=== PATIENT | male | born 1980 | race Caucasian/White ===

== ENCOUNTER → 2018-03-31 | Outpatient (REF) | payer BC ==
[2018-03-31 12:19] LABS: APPEARANCE, URINE CLEAR (CLEAR); BACTERIA, URINE AUTO NEGATIVE (NEGATIVE); BILIRUBIN, URINE AUTO NEGATIVE (NEGATIVE); BLOOD, URINE BLOOD NEGATIVE (NEGATIVE); COLOR, URINE YELLOW (YELLOW); GLUCOSE, URINE (UA) AUTO NEGATIVE (NEGATIVE); KETONE, URINE AUTO NEGATIVE (NEGATIVE); LEUKOCYTE ESTERASE, URINE AUTO NEGATIVE (NEGATIVE); MUCUS, URINE SMALL (NEGATIVE); NITRITE, URINE AUTO NEGATIVE (NEGATIVE); PROTEIN, URINE AUTO NEGATIVE (NEGATIVE); RBC, URINE AUTO 0 /HPF (0-3); SPECIFIC GRAVITY URINE AUTO 1.015 (1.002-1.035); SQUAMOUS EPITHELIAL CELL UR AU 0 /HPF (0-6); UROBILINOGEN, URINE AUTO 0.2 mg/dL (0.0-2.0); WBC, URINE AUTO 0 /HPF (0-3)
[2018-03-31 12:32] LABS: VITAMIN B12 LEVEL 593 PG/ML (247-911)
[2018-03-31 12:39] LABS: ALBUMIN 4.2 GM/DL (3.2-5.2); ALBUMIN/GLOBULIN RATIO 1.14 (1.00-1.93); ALKALINE PHOSPHATASE 95 U/L (45-117); ALT/SGPT 29 U/L (12-78); ANION GAP 5 MEQ/L (8-16); AST/SGOT 19 U/L (7-37); BLOOD UREA NITROGEN 18 MG/DL (7-18); C REACTIVE PROTEIN QUANTITATIV < 0.30 MG/DL (0.00-0.30); CALCIUM LEVEL 8.8 MG/DL (8.5-10.1); CARBON DIOXIDE LEVEL 30 MEQ/L (21-32); CHLORIDE LEVEL 105 MEQ/L (98-107); CHOLESTEROL LEVEL 187 MG/DL (<200); CHOLESTEROL RISK RATIO 4.675 (<5); CREATININE FOR GFR 1.16 MG/DL (0.70-1.30); GLOMERULAR FILTRATION RATE > 60.0 (>60); GLUCOSE, FASTING 86 MG/DL (70-100); HDL CHOLESTEROL 40 MG/DL (>40); LDL CHOLESTEROL 132.8 MG/DL (<100); NON-HDL-C 147 MG/DL; POTASSIUM SERUM 4.1 MEQ/L (3.5-5.1); SODIUM LEVEL 140 MEQ/L (136-145); TOTAL PROTEIN 7.9 GM/DL (6.4-8.2); TRIGLYCERIDES LEVEL 71 MG/DL (<150)
[2018-03-31 12:53] LABS: MALB URINE SIEMENS 21.5 MG/L; MAU/CREAT RATIO 13.7 MCG/MG (0.0-30.0)
[2018-03-31 13:12] LABS: ESTIMATED AVERAGE GLUCOSE 117 MG/DL (60-110); HEMOGLOBIN A1c 5.7 %
[2018-04-01 14:18] LABS: INSULIN LEVEL 13.1 uIU/mL (2.6-24.9)
[2018-04-02 10:53] LABS: QUANTIFERON GOLD TB Negative (Negative); TB Test (QFT) Antigen 0.05 IU/mL (.); TB Test (QFT) Antigen Minus Ni 0.01 IU/mL (.); TB Test (QFT) Mitogen 7.74 IU/mL (.); TB Test (QFT) Nil 0.04 IU/mL (.)
== END ==
LOC: M SFHCPLAZ 09:31
DX: R73.01 Impaired fasting glucose (principal); E78.2 Mixed hyperlipidemia; E53.8 Deficiency of other specified B group vitamins; Z20.1 Contact with and (suspected) exposure to tuberculosis
CPT/HCPCS: 83525

== ENCOUNTER → 2018-04-04 | Outpatient (CLI) | payer BC | LOC: M RAD 17:26 | DX: E04.1 Nontoxic single thyroid nodule (principal) | CPT/HCPCS: 76536 ==

== ENCOUNTER 2018-11-28 14:55 | Day surgery (SDC) | payer BC ==
[~2018-11-28] VITALS: Ht 172.7 cm; Wt 85.5 kg
[2018-11-28] MEDS ORDERED: NS 1,000 ML IV ONE ×2 (15:30)
[2018-11-28] MEDS ORDERED: LIDOCAINE 1% SDV INJ 30 ML VIAL As Ordered ONE (15:45)
[2018-11-28] MEDS ORDERED: BUPIVACAINE HCL 0.25% 30 ML VIAL As Ordered ONE (15:45)
[2018-11-28] MEDS ORDERED: PROPOFOL 200 MG/20 ML VIAL As Ordered ONE (15:53)
[2018-11-28] MEDS ORDERED: LIDOCAINE 2% INJ 100 MG/5 ML SDV (FOR ANES.) As Ordered ONE (15:53)
[2018-11-28] MEDS ORDERED: ROCURONIUM BROMIDE 50 MG/5 ML VIAL As Ordered ONE (15:53)
[2018-11-28] MEDS ORDERED: MIDAZOLAM INJ 2 MG/2 ML VIAL (J2250) As Ordered ONE (15:54)
[2018-11-28] MEDS ORDERED: SUCCINYLCHOLINE 100 MG/5 ML SYRINGE (J0330) As Ordered ONE (15:54)
[2018-11-28] MEDS ORDERED: fentaNYL 100 MCG/2 ML INJECTION (J3010) As Ordered ONE (15:54)
[2018-11-28] MEDS ORDERED: ONDANSETRON 4MG/2ML VIAL (J2405) IV ONE (16:00)
[2018-11-28] MEDS ORDERED: MORPHINE 2 MG/ML 1ML SYRINGE (J2270) IV ONE (16:00)
[2018-11-28 16:08] LABS: BASO # 0.1 10^3/uL (0.0-0.2); BASO % 0.3 % (0.0-1.0); EOS # 0.1 10^3/uL (0.0-0.50); EOS % 0.8 % (0.0-3.0); HEMATOCRIT 36.8 % (42.0-52.0); HEMOGLOBIN 13.3 g/dl (13.5-17.5); LYMPH # 2.1 10^3/uL (1.5-4.5); LYMPH % 14.9 % (24.0-44.0); MEAN CORPUSCULAR HEMOGLOBIN 30.6 pg (27.0-33.0); MEAN CORPUSCULAR HGB CONC 36.1 g/dl (32.0-36.5); MEAN CORPUSCULAR VOLUME 84.8 fl (80.0-96.0); MONO # 1.3 10^3/uL (0.0-0.8); MONO % 8.8 % (0.0-5.0); NEUTROPHILS # 10.7 10^3/uL (1.8-7.7); NEUTROPHILS % 74.7 % (36.0-66.0); PLATELET COUNT, AUTOMATED 318 10^3/uL (150-450); RED BLOOD COUNT 4.34 10^6/uL (4.30-6.10); WHITE BLOOD COUNT 14.4 10^3/uL (4.0-10.0)
[2018-11-28] MEDS ORDERED: ceFAZolin 2 GM/D5W 50 ML IV BAG (J0690 PER 500MG) As Ordered ONE (16:26)
[2018-11-28 16:46] LABS: ALBUMIN 4.1 GM/DL (3.2-5.2); BILIRUBIN,DIRECT 0.2 MG/DL (0.0-0.2); BILIRUBIN,TOTAL 1.1 MG/DL (0.2-1.0); C REACTIVE PROTEIN QUANTITATIV 0.35 MG/DL (0.00-0.30); CALCIUM LEVEL 8.4 MG/DL (8.5-10.1); CREATININE FOR GFR 1.42 MG/DL (0.70-1.30); GLOMERULAR FILTRATION RATE 59.1 (>60); POTASSIUM SERUM 3.3 MEQ/L (3.5-5.1); TOTAL PROTEIN 6.9 GM/DL (6.4-8.2)
[2018-11-28] MEDS ORDERED: dexameTHASONE 4 MG/ML 1ML VIAL (J1100) As Ordered ONE (16:54)
[2018-11-28] MEDS ORDERED: VASOPRESSIN INJ 20 UNITS/ML VIAL As Ordered ONE (16:59)
[2018-11-28] MEDS ORDERED: BACITRACIN PWD 50,000 UNITS VIAL As Ordered ONE (17:04)
[2018-11-28] MEDS ORDERED: GLYCOPYRROLATE INJ 0.2 MG/ML 2 ML VIAL As Ordered ONE (17:09)
[2018-11-28] MEDS ORDERED: HYDROmorphone HCL 2 MG/ML 1ML VIAL (J1170) As Ordered ONE (17:21)
[2018-11-28] MEDS ORDERED: SUGAMMADEX SODIUM 500 MG/5 ML VIAL (BRIDION) As Ordered ONE (17:25)
[2018-11-28] MEDS ORDERED: BACITRACIN OINT 30GM As Ordered ONE (17:25)
[2018-11-28] MEDS ORDERED: PERCOCET 5MG/325MG TAB PO PRN ×2 (18:15)
[2018-11-28 18:22] LABS: HEMATOCRIT 29.8 % (42.0-52.0); HEMOGLOBIN 10.4 g/dl (13.5-17.5)
[2018-11-28] MEDS ORDERED: ONDANSETRON 4MG/2ML VIAL (J2405) IV PRN ×2 (18:30→22:00)
[2018-11-28] MEDS ORDERED: LR 1,000 ML IV SCH (18:30)
[2018-11-28] MEDS ORDERED: fentaNYL 100 MCG/2 ML INJECTION (J3010) IV PRN (18:30)
[2018-11-28 19:45] VITALS: BP 143/77
[2018-11-28] MEDS ORDERED: ISOVUE-370 76% 100ML VIAL (Q9967) As Ordered ONE (20:27)
[2018-11-28 20:45] VITALS: BP 128/74
[2018-11-28 21:00] VITALS: BP 135/74
[2018-11-28] MEDS ORDERED: SENOKOT S TAB PO SCH (21:00)
[2018-11-28] MEDS: LIDOCAINE 2% JELLY 30 ML TOP PRN (21:11)
[2018-11-28 21:30] VITALS: BP 131/68
[2018-11-28] MEDS ORDERED: D5W/0.45% SODIUM CHLORIDE 1,000 ML IV SCH (21:30)
--- NOTE | 2018-11-28 21:32 | REPVR ---
EXAM: CT Abdomen and Pelvis Without and With Contrast EXAM DATE/TIME: 11/28/2018 8:42 PM CLINICAL HISTORY: 38 years old, male; Pain; Abdominal pain; Generalized; Additional info: Firm abdomen TECHNIQUE: Axial computed tomography images of the abdomen and pelvis without and with intravenous contrast. All CT scans at this facility use at least one of these dose optimization techniques: automated exposure control; mA and/or kV adjustment per patient size (includes targeted exams where dose is matched to clinical indication); or iterative reconstruction. Coronal and sagittal reformatted images were created and reviewed. CONTRAST: Contrast Material: 100 ml of ISOVUE 370; Contrast Route: IV COMPARISON: No relevant prior studies available. FINDINGS: Lower thorax: Minimal bilateral lower lobe fibro-atelectatic change. ABDOMEN: Liver: Normal. No mass. Gallbladder and bile ducts: Normal. No calcified stones. No ductal dilation. Pancreas: Normal. No ductal dilation. Spleen: Normal. No splenomegaly. Adrenals: Normal. No mass. Kidneys and ureters: There is a right renal cyst measuring 15 mm. Stomach and bowel: Borderline distention of the stomach with food material. Appendix: There are no changes of appendicitis. A normal appendix is not seen. PELVIS: Bladder: There is a Villasenor catheter in the bladder. Reproductive: Subcutaneous induration in the right inguinal region with asymmetric enlargement of the right spermatic cord and induration and edema of the scrotum, right greater than left with drain extending into the right aspect of the scrotum. There are minimal foci of gas about the right aspect of the scrotum. ABDOMEN and PELVIS: Intraperitoneal space: Normal. No free air. No significant fluid collection. Bones/joints: No acute fracture. No dislocation. Soft tissues: Minimal fat filled umbilical hernia. Vasculature: Normal. No abdominal aortic aneurysm. Lymph nodes: Normal. No enlarged lymph nodes. IMPRESSION: 1. Probable recent surgery involving the right aspect of the scrotum with drain in position. There are minimal foci of gas and scrotal edema/induration, right greater than left with asymmetric enlargement of the right spermatic cord and subcutaneous induration in the right inguinal region. Infection is not excluded and correlation with timing of most recent surgery is suggested. 2. Villasenor catheter in position. 3. There is borderline gastric distention with food material which may reflect recent ingestion. Gastric atony or relative outlet obstruction are not excluded. 4. Otherwise negative CT abdomen/pelvis. No bowel distention is seen. Electronically signed by: Victor Hugo Maciel On 11/28/2018 21:32:00 PM
[2018-11-28] MEDS: SENOKOT S TAB PO SCH (22:07)
[2018-11-28 22:30] VITALS: BP 118/61
[2018-11-28 23:00] VITALS: BP 133/69
[2018-11-28] MEDS: KCL 20MEQ in NS 1000ML 1,000 ML IV SCH (23:00)
[2018-11-28 23:41] LABS: HEMATOCRIT 29.7 % (42.0-52.0); HEMOGLOBIN 10.4 g/dl (13.5-17.5); MEAN CORPUSCULAR HEMOGLOBIN 30.5 pg (27.0-33.0); MEAN CORPUSCULAR VOLUME 87.1 fl (80.0-96.0); PLATELET COUNT, AUTOMATED 226 10^3/uL (150-450); RED BLOOD COUNT 3.41 10^6/uL (4.30-6.10); WHITE BLOOD COUNT 12.8 10^3/uL (4.0-10.0)
[2018-11-28 23:55] LABS: INR 1.23; PROTHROMBIN TIME 15.7 SECONDS (12.1-14.4)
[2018-11-28 23:56] LABS: PARTIAL THROMBOPLASTIN TIME 29.3 SECONDS (25.4-37.6)
[2018-11-29] VITALS (8 sets, daily range): BP systolic 119–139; BP diastolic 58–79
[2018-11-29] MEDS: LIDOCAINE 2% JELLY 30 ML TOP PRN (03:02)
[2018-11-29] MEDS: KCL 20MEQ in NS 1000ML 1,000 ML IV SCH (04:10)
[2018-11-29 06:10] LABS: HEMATOCRIT 28.7 % (42.0-52.0); HEMOGLOBIN 9.9 g/dl (13.5-17.5); MEAN CORPUSCULAR HEMOGLOBIN 30.5 pg (27.0-33.0); MEAN CORPUSCULAR HGB CONC 34.5 g/dl (32.0-36.5); MEAN CORPUSCULAR VOLUME 88.3 fl (80.0-96.0); PLATELET COUNT, AUTOMATED 244 10^3/uL (150-450); RED BLOOD COUNT 3.25 10^6/uL (4.30-6.10); WHITE BLOOD COUNT 14.2 10^3/uL (4.0-10.0)
[2018-11-29 06:30] LABS: BLOOD UREA NITROGEN 12 MG/DL (7-18); CALCIUM LEVEL 7.6 MG/DL (8.5-10.1); CARBON DIOXIDE LEVEL 23 MEQ/L (21-32); CHLORIDE LEVEL 111 MEQ/L (98-107); CREATININE FOR GFR 1.02 MG/DL (0.70-1.30); GLOMERULAR FILTRATION RATE > 60.0 (>60); GLUCOSE, FASTING 134 MG/DL (70-100); POTASSIUM SERUM 4.1 MEQ/L (3.5-5.1); SODIUM LEVEL 144 MEQ/L (136-145)
--- NOTE | 2018-11-29 08:45 | IPNPDOC ---
Subjective Date Seen The patient was seen on 11/29/18. Subjective Chief Complaint/HPI bleeding after vasectomy. developed hypotension and transient elevation of Creatinine following apparent vagal event. sufficient bleeding to reduce hgb from 14's to 9.9 this am. Constitutional: Denies: Chills ENT: Denies: Head Aches Pulmonary: Denies: Dyspnea, Cough Cardiovascular: Denies: Chest Pain, Paroxysmal Noc. Dyspnea Gastrointestinal: Denies: Nausea, Abdominal Pain Genitourinary: Reports: Other Symptoms (scrotal discomfort and swelling and irritation at urethra from Villasenor) Endocrine: Denies: Polydipsia Neurological: Denies: Weakness, Change in speech Psych: Denies: Mood Normal Objective Physical Examination General Exam: Positive: Alert, Cooperative Eye Exam: Positive: PERRLA, EOMI Neck Exam: Positive: Supple; Negative: thyromegaly Chest Exam: Positive: Clear to auscultation Heart Exam: Positive: Rate Normal; Negative: Murmurs Abdomen Exam: Positive: Normal bowel sounds; Negative: Tenderness Male Exam: Positive: Edema, Tenderness (swelling of right scrotum. some minimal oozing still from drain; penile swelling present but per patient has reduced as has scrotal swelling over night.) Skin Exam: Positive: Nl turgor and temperature Psych Exam: Positive: Mental status NL Assessment /Plan Problems (1) Scrotal hematoma Status: Acute Response to Treatment: Improving Problem Specific Plan: Monitor Clinically, Repeat Labs (2) Hypotension Status: Acute Response to Treatment: Improving Problem Specific Plan: Monitor Clinically, Repeat Labs (3) Acute blood loss as cause of postoperative anemia Status: Acute Response to Treatment: Stable Problem Specific Plan: Monitor Clinically, Repeat Labs (has q6 cbc's ordered.) Plan/VTE VTE Prophylaxis Ordered?: No VTE Exclusion Pharmacological: Active Bleeding Plan Anticipated Discharge: Home VS, I&O, 24H, Fishbone Vital Signs/I&O Vital Signs Date Time Temp Pulse Resp B/P (MAP) Pulse Ox O2 Delivery O2 Flow Rate FiO2 11/29/18 06:00 98.4 89 18 133/60 (84) 97 11/28/18 18:45 2 11/28/18 16:12 Room Air I&O- Last 24 Hours up to 6 AM 11/29/18 06:00 Intake Total 4500 ml Output Total 3090 ml Balance 1410 ml Laboratory Data 24H LABS Laboratory Tests 2 11/28/18 15:28: Immature Granulocyte % (Auto) 0.5, White Blood Count 14.4H, Red Blood Count 4.34, Hemoglobin 13.3L, Hematocrit 36.8L, Mean Corpuscular Volume 84.8, Mean Corpuscular Hemoglobin 30.6, Mean Corpuscular Hemoglobin Concent 36.1, Red Cell Distribution Width 12.3, Platelet Count 318, Neutrophils (%) (Auto) 74.7H, Lymphocytes (%) (Auto) 14.9L, Monocytes (%) (Auto) 8.8H, Eosinophils (%) (Auto) 0.8, Basophils (%) (Auto) 0.3, Neutrophils # (Auto) 10.7H, Lymphocytes # (Auto) 2.1, Monocytes # (Auto) 1.3H, Eosinophils # (Auto) 0.1, Basophils # (Auto) 0.1, Nucleated Red Blood Cells % (auto) 0.0, Anion Gap 12, Glomerular Filtration Rate 59.1L, Calcium Level 8.4L, Aspartate Amino Transf (AST/SGOT) 22, Alanine Aminotransferase (ALT/SGPT) 32, Alkaline Phosphatase 83, Total Bilirubin 1.1H, Direct Bilirubin 0.2, C-Reactive Protein, Quantitative 0.35H, Total Protein 6.9, Albumin 4.1, Albumin/Globulin Ratio 1.46, Amylase Level 43 11/28/18 15:34: Lactic Acid Level 2.5*H 11/28/18 20:00: Lactic Acid Followup at 4 Hours 2.3*H 11/28/18 23:29: Nucleated Red Blood Cells % (auto) 0.0, Prothrombin Time 15.7H, Prothromb Time International Ratio 1.23, Activated Partial Thromboplast Time 29.3 11/29/18 05:34: Nucleated Red Blood Cells % (auto) 0.0 11/29/18 05:36: Anion Gap 10, Glomerular Filtration Rate > 60.0, Blood Urea Nitrogen 12, Creatinine 1.02, Sodium Level 144, Potassium Level 4.1#, Chloride Level 111H, Carbon Dioxide Level 23, Calcium Level 7.6L CBC/BMP Laboratory Tests 11/28/18 15:28 Red Blood Count 4.34, Mean Corpuscular Volume 84.8, Mean Corpuscular Hemoglobin 30.6, Mean Corpuscular Hemoglobin Concent 36.1, Red Cell Distribution Width 12.3, Neutrophils (%) (Auto) 74.7 H, Lymphocytes (%) (Auto) 14.9 L, Monocytes (%) (Auto) 8.8 H, Eosinophils (%) (Auto) 0.8, Basophils (%) (Auto) 0.3, Neutrophils # (Auto) 10.7 H, Lymphocytes # (Auto) 2.1, Monocytes # (Auto) 1.3 H, Eosinophils # (Auto) 0.1, Basophils # (Auto) 0.1 11/28/18 17:59 11/28/18 23:29 Red Blood Count 3.41 L, Mean Corpuscular Volume 87.1, Mean Corpuscular Hemoglobin 30.5, Mean Corpuscular Hemoglobin Concent 35.0, Red Cell Distribution Width 12.4 11/29/18 05:34 Red Blood Count 3.25 L, Mean Corpuscular Volume 88.3, Mean Corpuscular Hemoglobin 30.5, Mean Corpuscular Hemoglobin Concent 34.5, Red Cell Distribution Width 12.4 11/29/18 05:36 Calcium Level 7.6 L Microbiology Microbiology 11/28/18 Blood Culture, Received Pending King Croft MD Nov 29, 2018 08:45
[2018-11-29] MEDS ORDERED: BACTRIM 160MG/800MG DS TAB PO SCH (09:00)
[2018-11-29] MEDS: SENOKOT S TAB PO SCH (09:18)
--- NOTE | 2018-11-29 09:55 | RO ---
DATE OF PROCEDURE: 11/28/2018 PREOPERATIVE DIAGNOSIS: Scrotal hematoma and unwanted fertility. POSTOPERATIVE DIAGNOSIS: Scrotal hematoma and unwanted fertility. PROCEDURE: Right hemiscrotal exploration and evacuation of hematoma and right vasectomy. SURGEON: Dr. Makayla Babb ANESTHESIA: General. MEDICATIONS: Ancef 2 grams preoperatively. FINDINGS: Scrotal edema and thickening of the scrotal skin, right inguinal hernia with some fat in the scrotal sac. 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 The left-sided was done without incident. On the right-hand side, the vas was palpated but whenever I tried to isolate it there was quite a lot of abdominal fat around it that was adherent. H had a previous hernia operation. After trying in the office for awhile, it was decided to bring him to the operating room to do the vasectomy with IV sedation. But in the meanwhile post procedurally, he began having severe scrotal swelling and it was decided to bring emergently to the operating room for suspected hematoma. In the emergency room he was extremely hypotensive there was believed to be a vasovagal reaction since his hemoglobin was 13.6, although he did have quite a lot of scrotal swelling and pain. All options, alternatives, risks and benefits were discussed and informed consent was obtained. DESCRIPTION OF PROCEDURE: The patient was brought into the operating room. Sequential compression devices were in place and preoperative antibiotics were given, anesthesia was induced. He was prepped and draped in the usual fashion. An incision was made over the right milady scrotum. And what was noted was quite a lot of scrotal edema and thickening with a hematoma in the scrotal skin. There was definitely blood clots found under the fascia and the testicle was pink and completely intact. The hematomas were removed but there was no active bleeding seen. There was some inguinal fat coming through the inguinal canal and this was pushed back up and a large hernia was felt.. The tissue was brought together using a #2-0 silk suture. Next, the right vasectomy was done. The vas deferens was now easily mobilized under direct visualization, removed and tied using chromic sutures and also burnt at the edges. The testicle was then pexed using #2-0 silk sutures. Copious antibiotic irrigation was done and there was no evidence of active bleeding. There was a remarkable amount, though, of scrotal swelling throughout still. At this point, the fascial tissue was reapproximated using #2-0 chromic sutures and skin was closed using a #2-0 chromic suture. There was a quarter-inch [place] drain placed through the previous vasectomy site on the right hand side to allow any postoperative drainage. Fluffs and scrotal support was placed. The patient tolerated the procedure well was returned to the recovery room in stable condition. There is no further hypotensive in the operating room but we will repeat an hemoglobin and hematocrit.
[2018-11-29] MEDS ORDERED: BACITRACIN OINT 30GM TOP PRN (10:15)
[2018-11-29] MEDS ORDERED: NS 1,000 ML IV ONE (10:30)
[2018-11-29] MEDS: ACETAMINOPHEN 500 MG TAB PO PRN ×2 (10:45→16:45)
--- NOTE | 2018-11-29 11:40 | ECGEPIP ---
Stationary ECG Study [facility] - ED Test Date: 2018-11-28 Pat Name: LAURIE QURESHI Department: Room: [place] [address] Gender: M Seo Team Lead: : 1980 Requested By: Jerome Rabago Order Number: [id number] Reading MD: Neda Miller Measurements Intervals [place] Rate: 70 P: 38 MA: 158 QRS: 58 QRSD: 101 T: 49 QT: 407 QTc: 439 Interpretive Statements SINUS RHYTHM NSTTW ABNORMALITY NO PRIOR FOR COMPARISON Electronically Signed On 11-29-2018 11:40:47 EST by Neda Miller
[2018-11-29 12:19] LABS: HEMATOCRIT 27.8 % (42.0-52.0); HEMOGLOBIN 9.5 g/dl (13.5-17.5); MEAN CORPUSCULAR HEMOGLOBIN 30.6 pg (27.0-33.0); MEAN CORPUSCULAR HGB CONC 34.2 g/dl (32.0-36.5); MEAN CORPUSCULAR VOLUME 89.7 fl (80.0-96.0); PLATELET COUNT, AUTOMATED 227 10^3/uL (150-450); WHITE BLOOD COUNT 16.7 10^3/uL (4.0-10.0)
[2018-11-29] MEDS ORDERED: BACT800T5 PO (15:29)
--- NOTE | 2018-11-30 05:03 | IPN ---
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 He was brought emergently to the operating room, and the hematoma was evacuated and the right vasectomy was completed. Postprocedurally, he continued to have orthostatic hypotension, and it was decided to watch him on telemetry overnight. He did need to be catheterized last night for inability to void with 1200 mL in his bladder, but the Villasenor catheter has been removed and he is voiding well now. He is no longer having orthostatic hypotension and is up and walking without significant complaints. PHYSICAL EXAMINATION: He is alert and oriented times three. His blood pressure is 119/62, and his pulse is 78. His heart has a regular rate and rhythm. He does have a Dot[place] drain in place, and there was some discharge overnight but no significant active bleeding now. There is still some hemiscrotal swelling, but this is soft and nontender to touch. His extremities show no cyanosis, clubbing, or edema. He still appears slightly whiter the normal. LABORATORY DATA: His white blood count is elevated at 16.7, up from 12.8. His hemoglobin and hematocrit have dropped to 9.5 over 27.8 from a preoperative hemoglobin of 13.6. A CT scan of the abdomen and pelvis was done 11/28/2018, which showed a right renal cyst measuring 15 mm, distension of the stomach with food material, Villasenor catheter in the bladder. There was subcutaneous induration in the right inguinal region with asymmetric enlargement of the right spermatic cord and induration and edema of the scrotum with the right greater than the left. IMPRESSION: 1. Postoperative day #1 status post evacuation of a right hemiscrotal hematoma secondary to an attempted vasectomy and now with completed right vasectomy with findings of some abdominal fat around the spermatic cord, most likely from an old inguinal hernia, still with a large inguinal opening. 2. Significant vasovagal response secondary to acute blood loss and discomfort, now hemodynamically stable and doing fine. PLAN: He will be discharged to home today with a [place] drain and Bactrim DS one tablet twice daily. He will followup in the office tomorrow and will call us if there are any changes.
== END 2018-11-29 17:01 | disposition home or self-care (01) ==
LOC: M ED 14:55 → M SDC 16:00 → M MSPAV 19:27 → M SDC 11-29 17:01
PROVIDERS: ATTEND Specialist
DX: M79.81 Nontraumatic hematoma of soft tissue (principal); Z30.2 Encounter for sterilization; F32.9 Major depressive disorder, single episode, unspecified; I95.9 Hypotension, unspecified
CPT/HCPCS: 36415; 54700; 55250; 74178; 80048; 80076; 82150; 83605; 85014; 85018; 85025; 85027; 85610; 85730; 86140; 86850; 86900; 86901; 86920; 87040; 88302; 93005; 93041; 94760; 96365; 96367; 96375; 96376; 99285; J0330; J0690; J1100; J1170; J2250; J2270; J2405; J3010; P9045; Q9967

== ENCOUNTER → 2018-11-28 | Outpatient (REF) | payer BC ==
[~2018-11-28] MED LIST: BACT800T5 PO
--- NOTE | 2018-11-29 02:04 | CR ---
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 He had postoperative bleeding after a vasectomy today. Was stable upon discharge after the procedure which, per the patient involved an unremarkable left sided vas ligation but difficulty identifying and ligating the right vas in part due to a previous hernia. The patient went home with plans to return the next day to have the right side ligated; however, after going home from the procedure he developed significant swelling in the right hemiscrotum and then extending into the penis. He presented to the emergency room hypotensive. Blood pressure systolic pressure in the 50s probably a vasovagal response. First recorded blood pressure is 60/31 with a pulse of 41. Placed in Trendelenburg, given intravenous (IV) fluids. Pressure has come up and has remained 100 or greater since then. The patient went to the operating room and had hematoma evacuated. He currently has a Villasenor catheter in place and a drain in place. CT of the abdomen and pelvis was done. No sign of any intra-abdominal bleeding. No genitourinary hematoma noted post evacuation. PHYSICAL EXAMINATION: 134/74, pulse of 100, respiratory rate 18, oxygen saturation 100%. GENERAL APPEARANCE: He is pale. He is alert and conversive. LUNGS: Clear. ABDOMEN: Soft, nondistended. Bowel sounds present. GENITOURINARY (): Exam showed ecchymosis and swelling of the right hemiscrotum extending into the penis. Villasenor catheter is in place. There is bleeding around the incision. Per patient, the amount of swelling is significantly improved. LABORATORIES: Hemoglobin at 1330 was 14.9, at 1528 it was 13.6 and at 6 p.m. was 10.4. Lactic acid was 2.5 at 1534, 2.3 three hours later. IMPRESSION: Postoperative bleeding status post evacuation of genitourinary hematoma and I have ordered serial complete blood count (CBC). He has already been typed and screened. He gives verbal consent for transfusion though I do not think he has had a written consent. Currently receiving half-normal saline. I would prefer we volume expand with normal saline with supplementation potassium. He has already received antibiotic Ancef in the emergency room and trimethoprim sulfa has been ordered for tomorrow. I am available all night if there are any issues or concerns. The case has been discussed with the nursing staff as well.
== END ==
LOC: M SMT 18:52
PROVIDERS: ATTEND Specialist
DX: Z30.09 Encounter for other general counseling and advice on contraception (principal)

== ENCOUNTER → 2018-11-28 | Outpatient (CLI) | payer BC ==
[2018-11-28 17:57] LABS: HEMATOCRIT 43.1 % (42.0-52.0); HEMOGLOBIN 14.9 g/dl (13.5-17.5); MEAN CORPUSCULAR HEMOGLOBIN 30.2 pg (27.0-33.0); MEAN CORPUSCULAR HGB CONC 34.6 g/dl (32.0-36.5); MEAN CORPUSCULAR VOLUME 87.4 fl (80.0-96.0); PLATELET COUNT, AUTOMATED 311 10^3/uL (150-450); RED BLOOD COUNT 4.93 10^6/uL (4.30-6.10)
[2018-11-28 18:58] LABS: BLOOD UREA NITROGEN 16 MG/DL (7-18); CALCIUM LEVEL 8.7 MG/DL (8.5-10.1); CARBON DIOXIDE LEVEL 27 MEQ/L (21-32); CHLORIDE LEVEL 103 MEQ/L (98-107); CREATININE FOR GFR 1.17 MG/DL (0.70-1.30); GLOMERULAR FILTRATION RATE > 60.0 (>60); GLUCOSE, FASTING 77 MG/DL (70-100); SODIUM LEVEL 140 MEQ/L (136-145)
== END ==
LOC: M SMT 13:29
PROVIDERS: ATTEND Specialist
DX: Z30.09 Encounter for other general counseling and advice on contraception (principal)

== ENCOUNTER → 2018-12-16 | Outpatient (CLI) | payer BC ==
[2018-12-16 18:09] LABS: APPEARANCE, URINE CLEAR (CLEAR); BACTERIA, URINE AUTO NEGATIVE (NEGATIVE); BILIRUBIN, URINE AUTO NEGATIVE (NEGATIVE); BLOOD, URINE BLOOD NEGATIVE (NEGATIVE); COLOR, URINE YELLOW (YELLOW); GLUCOSE, URINE (UA) AUTO NEGATIVE (NEGATIVE); KETONE, URINE AUTO NEGATIVE (NEGATIVE); LEUKOCYTE ESTERASE, URINE AUTO NEGATIVE (NEGATIVE); MUCUS, URINE SMALL (NEGATIVE); NITRITE, URINE AUTO NEGATIVE (NEGATIVE); PROTEIN, URINE AUTO NEGATIVE (NEGATIVE); RBC, URINE AUTO 1 /HPF (0-3); SPECIFIC GRAVITY URINE AUTO 1.014 (1.002-1.035); SQUAMOUS EPITHELIAL CELL UR AU 0 /HPF (0-6); UROBILINOGEN, URINE AUTO 0.2 mg/dL (0.0-2.0); WBC, URINE AUTO 1 /HPF (0-3)
[2018-12-16 18:22] LABS: BASO # 0.1 10^3/uL (0.0-0.2); BASO % 0.8 % (0.0-1.0); EOS # 0.1 10^3/uL (0.0-0.50); EOS % 0.4 % (0.0-3.0); HEMATOCRIT 33.5 % (42.0-52.0); HEMOGLOBIN 11.9 g/dl (13.5-17.5); LYMPH # 1.2 10^3/uL (1.5-4.5); LYMPH % 9.9 % (24.0-44.0); MEAN CORPUSCULAR HEMOGLOBIN 30.8 pg (27.0-33.0); MEAN CORPUSCULAR HGB CONC 35.5 g/dl (32.0-36.5); MEAN CORPUSCULAR VOLUME 86.8 fl (80.0-96.0); MONO # 0.4 10^3/uL (0.0-0.8); MONO % 3.3 % (0.0-5.0); NEUTROPHILS # 10.1 10^3/uL (1.8-7.7); NEUTROPHILS % 84.6 % (36.0-66.0); PLATELET COUNT, AUTOMATED 504 10^3/uL (150-450); RED BLOOD COUNT 3.86 10^6/uL (4.30-6.10); WHITE BLOOD COUNT 11.9 10^3/uL (4.0-10.0)
== END ==
LOC: M LAB 16:35
PROVIDERS: ATTEND Family Medicine
DX: R53.83 Other fatigue (principal); D50.9 Iron deficiency anemia, unspecified; L02.91 Cutaneous abscess, unspecified

== ENCOUNTER → 2019-01-20 | Outpatient (REF) | payer BC ==
[2019-01-20 09:58] LABS: SEMEN APPEARANCE OPAQUE (OPAQUE); SEMEN VISCOSITY LIQUID (LIQUID); SEMEN VOLUME 2.5 ml (4.0-5.0); WBC CONCENTRATION <=1 M/ml (<=1 M/ml)
== END ==
LOC: M SMT 09:17
PROVIDERS: ATTEND Specialist
DX: Z30.09 Encounter for other general counseling and advice on contraception (principal)

== ENCOUNTER → 2019-03-03 | Outpatient (REF) | payer BC ==
[2019-03-03 11:06] LABS: SEMEN APPEARANCE OPAQUE (OPAQUE)
[2019-03-03 11:07] LABS: SEMEN VISCOSITY LIQUID (LIQUID); SEMEN VOLUME 2.5 ml (2.0-5.0); SEMEN pH 8.5 (7.0-8.0); WBC CONCENTRATION >1 M/ml (<=1 M/ml)
== END ==
LOC: M SMT 09:43
PROVIDERS: ATTEND Nurse Practitioner Family
DX: Z98.52 Vasectomy status (principal)

== ENCOUNTER → 2019-07-19 | Outpatient (CLI) | payer BC ==
[2019-07-19 08:38] LABS: BASO # 0.1 10^3/uL (0.0-0.2); BASO % 0.9 % (0.0-1.0); EOS # 0.3 10^3/uL (0.0-0.5); EOS % 4.2 % (0.0-3.0); HEMATOCRIT 39.8 % (42.0-52.0); HEMOGLOBIN 13.9 g/dl (13.5-17.5); LYMPH # 1.8 10^3/uL (1.5-5.0); LYMPH % 26.7 % (24.0-44.0); MEAN CORPUSCULAR HEMOGLOBIN 30.3 pg (27.0-33.0); MEAN CORPUSCULAR HGB CONC 34.9 g/dl (32.0-36.5); MEAN CORPUSCULAR VOLUME 86.9 fl (80.0-96.0); MONO # 0.7 10^3/uL (0.0-0.8); MONO % 10.7 % (0.0-5.0); NEUTROPHILS # 3.9 10^3/uL (1.5-8.5); NEUTROPHILS % 57.1 % (36.0-66.0); PLATELET COUNT, AUTOMATED 308 10^3/uL (150-450); RED BLOOD COUNT 4.58 10^6/uL (4.30-6.10); WHITE BLOOD COUNT 6.9 10^3/uL (4.0-10.0)
[2019-07-19 09:02] LABS: ALBUMIN 4.2 GM/DL (3.2-5.2); ALT/SGPT 26 U/L (12-78); BILIRUBIN,TOTAL 0.6 MG/DL (0.2-1.0); BLOOD UREA NITROGEN 18 MG/DL (7-18); CALCIUM LEVEL 9.2 MG/DL (8.5-10.1); CARBON DIOXIDE LEVEL 29 MEQ/L (21-32); CHLORIDE LEVEL 106 MEQ/L (98-107); CHOLESTEROL LEVEL 176 MG/DL (<200); CREATININE FOR GFR 1.15 MG/DL (0.70-1.30); GLOMERULAR FILTRATION RATE > 60.0 (>60); GLUCOSE, FASTING 103 MG/DL (70-100); HDL CHOLESTEROL 42 MG/DL (>40); LDL CHOLESTEROL 121 MG/DL (<100); NON-HDL-C 134 MG/DL; POTASSIUM SERUM 3.8 MEQ/L (3.5-5.1); SODIUM LEVEL 141 MEQ/L (136-145); TOTAL PROTEIN 7.5 GM/DL (6.4-8.2); TRIGLYCERIDES LEVEL 66 MG/DL (<150)
[2019-07-19 09:22] LABS: HEMOGLOBIN A1c 5.1 %
[2019-07-19 09:46] LABS: PTH INTACT 43.3 PG/ML (18.5-88.0); TOTAL 25(OH) VITAMIN D 38.1 NG/ML (30.0-100.0)
== END ==
LOC: M LAB 07:58
PROVIDERS: ATTEND Family Medicine
DX: R73.01 Impaired fasting glucose (principal); E78.2 Mixed hyperlipidemia; D64.9 Anemia, unspecified; E83.51 Hypocalcemia

== ENCOUNTER → 2019-09-15 | Outpatient (REF) | payer BC | LOC: M LAB REF 11:30 | PROVIDERS: ATTEND Family Medicine | DX: D22.61 Melanocytic nevi of right upper limb, including shoulder (principal); Z80.8 Family history of malignant neoplasm of other organs or systems ==

== ENCOUNTER → 2019-10-19 | Outpatient (CLI) | payer BC | LOC: M SLEEP HO 10-18 10:00 | PROVIDERS: ATTEND Family Medicine | DX: G47.33 Obstructive sleep apnea (adult) (pediatric) (principal) ==

== ENCOUNTER → 2019-11-20 | Outpatient (CLI) | payer BC ==
--- NOTE | 2019-11-22 09:39 | SLEEPCENT ---
DATE OF STUDY: 11/20/2019 ORDERED BY: Steve Sanchez DO Nocturnal polysomnography was performed for the titration of pressure therapy in this patient with obstructive sleep apnea syndrome based on clinical evaluation, confirmed by home testing revealing a respiratory event index of 13. For testing, a ResMed AirFit N301 medium sized mask with a chin strap was used. 4 cm of water pressure were applied to the circuit and the lights were extinguished. 7 hours and 58 minutes of data were reviewed. There were 413.5 minutes of sleep identified. Sleep latency was prolonged at 30 minutes. Rapid eye movement (REM) latency was short at 9 minutes. Sleep architecture was quite good with a six REM cycles. Overall sleep efficiency 87.4%. The electrocardiogram showed a sinus rhythm with an average heart rate of 64 beats per minute. EEG showed normal waveforms for awake and sleep. There are no focal events identified. Respiratory events were fully palliated with CPAP at a pressure of +5. There was minimal activity in the limb EMG leads. Limb movement arousal index was 8.1. IMPRESSION: Obstructive sleep apnea syndrome (G47.33) RECOMMENDATION: Nightly use of pressure therapy, 5 cm of water. Edited 11/22/2019 @ 0939 [facility] cc: Alex Lloyd MD
== END ==
LOC: M SLEEP 19:56
PROVIDERS: ATTEND Internal Medicine Pulmonary Disease
DX: G47.33 Obstructive sleep apnea (adult) (pediatric) (principal)

== ENCOUNTER → 2020-08-13 | Outpatient (REF) | LOC: M EMP 07:48 | PROVIDERS: ATTEND Family Medicine | DX: Z00.00 Encounter for general adult medical examination without abnormal findings (principal) ==

== ENCOUNTER → 2020-08-29 | Outpatient (REF) | payer BC ==
[2020-08-29 17:08] LABS: BASO # 0.1 10^3/uL (0.0-0.2); BASO % 0.8 % (0.0-1.0); EOS # 0.2 10^3/uL (0.0-0.5); HEMATOCRIT 42.2 % (42.0-52.0); HEMOGLOBIN 14.5 g/dl (13.5-17.5); LYMPH # 1.7 10^3/uL (1.5-5.0); MEAN CORPUSCULAR HEMOGLOBIN 30.5 pg (27.0-33.0); MEAN CORPUSCULAR HGB CONC 34.4 g/dl (32.0-36.5); MEAN CORPUSCULAR VOLUME 88.7 fl (80.0-96.0); MONO # 0.7 10^3/uL (0.0-0.8); MONO % 9.4 % (0.0-5.0); NEUTROPHILS # 4.8 10^3/uL (1.5-8.5); NEUTROPHILS % 63.4 % (36.0-66.0); PLATELET COUNT, AUTOMATED 301 10^3/uL (150-450); RED BLOOD COUNT 4.76 10^6/uL (4.30-6.10); WHITE BLOOD COUNT 7.6 10^3/uL (4.0-10.0)
[2020-08-29 17:37] LABS: ALBUMIN 4.4 GM/DL (3.2-5.2); ALT/SGPT 29 U/L (12-78); BILIRUBIN,TOTAL 0.7 MG/DL (0.2-1.0); BLOOD UREA NITROGEN 21 MG/DL (7-18); CALCIUM LEVEL 9.2 MG/DL (8.5-10.1); CARBON DIOXIDE LEVEL 28 MEQ/L (21-32); CHLORIDE LEVEL 106 MEQ/L (98-107); CHOLESTEROL LEVEL 185 MG/DL (<200); CHOLESTEROL RISK RATIO 4.512 (<5); CREATININE FOR GFR 1.28 MG/DL (0.70-1.30); GLOMERULAR FILTRATION RATE > 60.0 (>60); GLUCOSE, FASTING 93 MG/DL (70-100); HDL CHOLESTEROL 41 MG/DL (>40); LDL CHOLESTEROL 124 MG/DL (<100); NON-HDL-C 144 MG/DL; POTASSIUM SERUM 4.3 MEQ/L (3.5-5.1); SODIUM LEVEL 140 MEQ/L (136-145); TOTAL PROTEIN 7.5 GM/DL (6.4-8.2); TRIGLYCERIDES LEVEL 100 MG/DL (<150)
[2020-08-29 17:45] LABS: VITAMIN B12 LEVEL 608 PG/ML (247-911)
[2020-08-29 20:23] LABS: MALB URINE SIEMENS 44.2 MG/L; MAU/CREAT RATIO 30.4 MCG/MG (0.0-30.0)
[2020-08-29 20:35] LABS: HEMOGLOBIN A1c 5.2 %
[2020-08-29 21:11] LABS: APPEARANCE, URINE CLEAR (CLEAR); BACTERIA, URINE AUTO NEGATIVE (NEGATIVE); BILIRUBIN, URINE AUTO NEGATIVE (NEGATIVE); BLOOD, URINE BLOOD 1+ (NEGATIVE); COLOR, URINE YELLOW (YELLOW); GLUCOSE, URINE (UA) AUTO NEGATIVE (NEGATIVE); KETONE, URINE AUTO NEGATIVE (NEGATIVE); LEUKOCYTE ESTERASE, URINE AUTO NEGATIVE (NEGATIVE); MUCUS, URINE SMALL (NEGATIVE); NITRITE, URINE AUTO NEGATIVE (NEGATIVE); PROTEIN, URINE AUTO NEGATIVE (NEGATIVE); RBC, URINE AUTO 1 /HPF (0-3); SPECIFIC GRAVITY URINE AUTO 1.018 (1.002-1.035); SQUAMOUS EPITHELIAL CELL UR AU 0 /HPF (0-6); UROBILINOGEN, URINE AUTO 0.2 mg/dL (0.0-2.0); WBC, URINE AUTO 0 /HPF (0-3)
== END ==
LOC: M SFHCPLAZ 13:23
PROVIDERS: ATTEND Family Medicine
DX: E78.2 Mixed hyperlipidemia (principal); R73.01 Impaired fasting glucose; E53.8 Deficiency of other specified B group vitamins

== ENCOUNTER → 2020-09-30 | Outpatient (REF) ==
[2020-09-30 11:24] LABS: RSV AMPLIFICATION NEGATIVE (NEGATIVE)
== END ==
LOC: M EMP 10:27
PROVIDERS: ATTEND Family Medicine
DX: Z11.59 Encounter for screening for other viral diseases (principal)

== ENCOUNTER → 2021-02-13 | Outpatient (REF) | LOC: M EMP 07:37 | PROVIDERS: ATTEND Family Medicine | DX: Z20.822 Contact with and (suspected) exposure to COVID-19 (principal) ==

== ENCOUNTER → 2021-02-28 | Outpatient (REF) | payer BC ==
[2021-02-28 10:35] LABS: APPEARANCE, URINE CLEAR (CLEAR); BACTERIA, URINE AUTO NEGATIVE (NEGATIVE); BILIRUBIN, URINE AUTO NEGATIVE (NEGATIVE); BLOOD, URINE BLOOD 1+ (NEGATIVE); COLOR, URINE STRAW (YELLOW); GLUCOSE, URINE (UA) AUTO NEGATIVE (NEGATIVE); KETONE, URINE AUTO NEGATIVE (NEGATIVE); LEUKOCYTE ESTERASE, URINE AUTO NEGATIVE (NEGATIVE); NITRITE, URINE AUTO NEGATIVE (NEGATIVE); PROTEIN, URINE AUTO NEGATIVE (NEGATIVE); RBC, URINE AUTO 0 /HPF (0-3); SQUAMOUS EPITHELIAL CELL UR AU 0 /HPF (0-6); UROBILINOGEN, URINE AUTO 0.2 mg/dL (0.0-2.0); WBC, URINE AUTO 0 /HPF (0-3)
[2021-02-28 11:14] LABS: CREATININE, URINE 89.4 MG/DL; MALB URINE SIEMENS 21.6 MG/L; MAU/CREAT RATIO 24.1 MCG/MG (0.0-30.0)
[2021-02-28 11:15] LABS: ALBUMIN 4.3 GM/DL (3.2-5.2); BLOOD UREA NITROGEN 17 MG/DL (7-18); CALCIUM LEVEL 9.5 MG/DL (8.5-10.1); CARBON DIOXIDE LEVEL 31 MEQ/L (21-32); CHLORIDE LEVEL 104 MEQ/L (98-107); CHOLESTEROL LEVEL 207 MG/DL (<200); CHOLESTEROL RISK RATIO 4.813 (<5); CREATININE FOR GFR 1.07 MG/DL (0.70-1.30); FREE T4 0.83 NG/DL (0.76-1.46); GLOMERULAR FILTRATION RATE > 60.0 (>60); GLUCOSE, FASTING 97 MG/DL (70-100); HDL CHOLESTEROL 43 MG/DL (>40); LDL CHOLESTEROL 141 MG/DL (<100); NON-HDL-C 164 MG/DL; PHOSPHORUS LEVEL 4.1 MG/DL (2.5-4.9); PTH INTACT 33.1 PG/ML (18.5-88.0); SODIUM LEVEL 140 MEQ/L (136-145); TOTAL 25(OH) VITAMIN D 32.6 NG/ML (30.0-100.0); TRIGLYCERIDES LEVEL 116 MG/DL (<150)
== END ==
LOC: M SFHCPLAZ 08:16
PROVIDERS: ATTEND Family Medicine
DX: R73.01 Impaired fasting glucose (principal); E78.2 Mixed hyperlipidemia; E83.51 Hypocalcemia

== ENCOUNTER → 2021-03-04 | Outpatient (CLI) | payer BC ==
[2021-03-04 15:23] LABS: CPK CREATINE PHOSPHOKINASE 218 U/L (39-308); NT-PRO BNP 14 PG/ML (<125)
== END ==
LOC: M LAB 13:20
PROVIDERS: ATTEND Family Medicine
DX: I10 Essential (primary) hypertension (principal)

== ENCOUNTER → 2021-03-25 | Outpatient (CLI) | payer BC ==
--- NOTE | 2021-03-25 08:44 | REP ---
INDICATION: HTN COMPARISON: None TECHNIQUE: Real time suresh scale ultrasound examination using curved array transducer followed by color Doppler evaluation of the renal vasculature. FINDINGS: The bilateral kidneys are essentially normal in reniform shape, size and appearance. No hydronephrosis, nephrolithiasis, or renal mass lesion. No perinephric fluid collection. Right kidney measures 10.6 x 6.3 x 4.9 cm and includes 1.6 cm upper pole cyst. Left kidney measures 11.6 x 5.8 x 6.5 cm. Color Doppler evaluation. Peak aortic velocity: 108 centimeters/second RIGHT KIDNEY Renal arterial velocity: 123 centimeters/second Renal-aortic ratio: 1.14 Intrarenal resistive indices: 0.62-0.74 Intrarenal acceleration times: 0.044-0.067 LEFT KIDNEY Renal arterial velocity: 156 centimeters/second Renal-aortic ratio: 1.44 Intrarenal resistive indices: 0.62-0.64 Intrarenal acceleration times: 0.039-0.047 IMPRESSION: 1. Simple right renal cyst. Otherwise normal appearance of the bilateral kidneys. 2. Doppler interegation without sonographic evidence for renal arterial stenosis. <Electronically signed by Angel Juárez > 03/25/21 1231
== END ==
LOC: M RAD 07:02
PROVIDERS: ATTEND Family Medicine
DX: I10 Essential (primary) hypertension (principal)

== ENCOUNTER → 2021-04-18 | Outpatient (CLI) | payer BC ==
[2021-04-18 10:47] LABS: ALT/SGPT 48 U/L (12-78); BILIRUBIN,TOTAL 0.4 MG/DL (0.2-1.0); BLOOD UREA NITROGEN 18 MG/DL (7-18); CALCIUM LEVEL 8.4 MG/DL (8.5-10.1); CARBON DIOXIDE LEVEL 30 MEQ/L (21-32); CHLORIDE LEVEL 106 MEQ/L (98-107); CHOLESTEROL LEVEL 131 MG/DL (<200); CPK CREATINE PHOSPHOKINASE 180 U/L (39-308); CREATININE FOR GFR 1.13 MG/DL (0.70-1.30); GLOMERULAR FILTRATION RATE > 60.0 (>60); GLUCOSE, FASTING 103 MG/DL (70-100); POTASSIUM SERUM 4.1 MEQ/L (3.5-5.1); SODIUM LEVEL 141 MEQ/L (136-145); TRIGLYCERIDES LEVEL 139 MG/DL (<150)
[2021-04-18 10:48] LABS: CHOLESTEROL RISK RATIO 3.447 (<5); HDL CHOLESTEROL 38 MG/DL (>40); LDL CHOLESTEROL 65 MG/DL (<100); NON-HDL-C 93 MG/DL; TOTAL PROTEIN 6.9 GM/DL (6.4-8.2)
== END ==
LOC: M PLALAB 08:27
PROVIDERS: ATTEND Family Medicine
DX: E78.2 Mixed hyperlipidemia (principal)

== ENCOUNTER → 2021-05-20 | Outpatient (REF) | LOC: M EMP 07:08 | PROVIDERS: ATTEND Family Medicine | DX: Z20.822 Contact with and (suspected) exposure to COVID-19 (principal) ==

== ENCOUNTER → 2021-05-22 | Outpatient (REF) | LOC: M EMP 13:50 | PROVIDERS: ATTEND Family Medicine | DX: Z20.822 Contact with and (suspected) exposure to COVID-19 (principal); Z11.59 Encounter for screening for other viral diseases ==

== ENCOUNTER → 2021-07-01 | Outpatient (REF) ==
[2021-07-01 12:02] LABS: RSV AMPLIFICATION NEGATIVE (NEGATIVE)
== END ==
LOC: M EMP 07:41
PROVIDERS: ATTEND Family Medicine
DX: Z20.828 Contact with and (suspected) exposure to other viral communicable diseases (principal); Z11.52 Encounter for screening for COVID-19

== ENCOUNTER → 2021-07-24 | Outpatient (REF) | LOC: M EMP 07:45 | PROVIDERS: ATTEND Family Medicine | DX: Z20.822 Contact with and (suspected) exposure to COVID-19 (principal) ==

== ENCOUNTER → 2021-10-20 | Outpatient (CLI) | payer BC ==
[2021-10-20 13:53] LABS: BASO # 0.1 10^3/uL (0.0-0.2); BASO % 0.7 % (0.0-1.0); EOS # 0.1 10^3/uL (0.0-0.5); HEMATOCRIT 38.6 % (42.0-52.0); HEMOGLOBIN 13.3 g/dl (13.5-17.5); LYMPH % 11.4 % (24.0-44.0); MEAN CORPUSCULAR HEMOGLOBIN 30.4 pg (27.0-33.0); MEAN CORPUSCULAR HGB CONC 34.5 g/dl (32.0-36.5); MEAN CORPUSCULAR VOLUME 88.1 fl (80.0-96.0); MONO % 11.6 % (2.0-8.0); NEUTROPHILS # 6.6 10^3/uL (1.5-8.5); NEUTROPHILS % 74.8 % (36.0-66.0); PLATELET COUNT, AUTOMATED 254 10^3/uL (150-450); RED BLOOD COUNT 4.38 10^6/uL (4.30-6.10); WHITE BLOOD COUNT 8.8 10^3/uL (4.0-10.0)
[2021-10-20 14:36] LABS: TOTAL PROTEIN,RANDOM URINE 7.9 MG/DL (0.0-12.0)
[2021-10-20 14:43] LABS: ALBUMIN 4.1 GM/DL (3.2-5.2); ALT/SGPT 62 U/L (12-78); BILIRUBIN,TOTAL 0.8 MG/DL (0.2-1.0); BLOOD UREA NITROGEN 16 MG/DL (7-18); CARBON DIOXIDE LEVEL 30 MEQ/L (21-32); CHLORIDE LEVEL 102 MEQ/L (98-107); CHOLESTEROL LEVEL 109 MG/DL (<200); CHOLESTEROL RISK RATIO 2.794 (<5); CREATININE FOR GFR 1.17 MG/DL (0.70-1.30); GLOMERULAR FILTRATION RATE > 60.0 (>60); GLUCOSE, FASTING 86 MG/DL (70-100); HDL CHOLESTEROL 39 MG/DL (>40); LDL CHOLESTEROL 59 MG/DL (<100); MAGNESIUM LEVEL 2.4 MG/DL (1.8-2.4); NON-HDL-C 70 MG/DL; NT-PRO BNP 9 PG/ML (<125); POTASSIUM SERUM 3.7 MEQ/L (3.5-5.1); PTH INTACT 37.9 PG/ML (18.5-88.0); SODIUM LEVEL 137 MEQ/L (136-145); TOTAL 25(OH) VITAMIN D 43.3 NG/ML (30.0-100.0); TOTAL PROTEIN 7.1 GM/DL (6.4-8.2); TRIGLYCERIDES LEVEL 56 MG/DL (<150)
[2021-10-20 14:53] LABS: HEMOGLOBIN A1c 5.2 %
[2021-10-21 08:09] LABS: APOLIPOPROTEIN B/A-1 RATIO 0.5 ratio (0.0-0.7); INSULIN LEVEL 7.4 uIU/mL (2.6-24.9)
== END ==
LOC: M PLALAB 10:31
PROVIDERS: ATTEND Family Medicine
DX: E55.9 Vitamin D deficiency, unspecified (principal); I10 Essential (primary) hypertension; R73.01 Impaired fasting glucose; E78.2 Mixed hyperlipidemia

== ENCOUNTER → 2022-01-19 | Outpatient (CLI) | payer BC ==
[2022-01-19 14:55] LABS: BASO # 0.1 10^3/uL (0.0-0.2); BASO % 0.8 % (0.0-1.0); EOS # 0.2 10^3/uL (0.0-0.5); EOS % 1.9 % (0.0-3.0); HEMATOCRIT 38.8 % (42.0-52.0); HEMOGLOBIN 13.5 g/dl (13.5-17.5); LYMPH # 1.9 10^3/uL (1.5-5.0); LYMPH % 19.4 % (24.0-44.0); MEAN CORPUSCULAR HEMOGLOBIN 31.3 pg (27.0-33.0); MEAN CORPUSCULAR HGB CONC 34.8 g/dl (32.0-36.5); MEAN CORPUSCULAR VOLUME 89.8 fl (80.0-96.0); MONO # 1.1 10^3/uL (0.0-0.8); MONO % 10.5 % (2.0-8.0); NEUTROPHILS # 6.7 10^3/uL (1.5-8.5); PLATELET COUNT, AUTOMATED 277 10^3/uL (150-450); RED BLOOD COUNT 4.32 10^6/uL (4.30-6.10)
[2022-01-19 15:26] LABS: FERRITIN 83 NG/ML (26-388); NT-PRO BNP 5 PG/ML (<125)
[2022-01-20 17:34] LABS: VITAMIN B12 LEVEL 497 PG/ML (247-911)
== END ==
LOC: M PLALAB 13:14
PROVIDERS: ATTEND Family Medicine
DX: I10 Essential (primary) hypertension (principal); R06.00 Dyspnea, unspecified; R07.9 Chest pain, unspecified

== ENCOUNTER → 2022-02-05 | Outpatient (CLI) | payer BC ==
[2022-02-05 16:20] LABS: BLOOD UREA NITROGEN 21 MG/DL (7-18); CARBON DIOXIDE LEVEL 30 MEQ/L (21-32); CHLORIDE LEVEL 104 MEQ/L (98-107); CREATININE FOR GFR 1.11 MG/DL (0.70-1.30); GLOMERULAR FILTRATION RATE > 60.0 (>60); GLUCOSE, FASTING 99 MG/DL (70-100); POTASSIUM SERUM 3.8 MEQ/L (3.5-5.1); SODIUM LEVEL 138 MEQ/L (136-145)
== END ==
LOC: M PLALAB 12:15
PROVIDERS: ATTEND Family Medicine
DX: I10 Essential (primary) hypertension (principal)

== ENCOUNTER → 2022-03-26 | Outpatient (REF) | LOC: M EMP 09:35 | PROVIDERS: ATTEND Family Medicine | DX: Z11.52 Encounter for screening for COVID-19 (principal) ==

== ENCOUNTER → 2022-07-28 | Outpatient (CLI) | payer BC ==
[2022-07-28 14:33] LABS: BASO # 0.1 10^3/uL (0.0-0.2); BASO % 0.7 % (0.0-1.0); EOS # 0.2 10^3/uL (0.0-0.5); EOS % 2.5 % (0.0-3.0); HEMATOCRIT 42.5 % (42.0-52.0); HEMOGLOBIN 14.1 g/dl (13.5-17.5); LYMPH # 1.9 10^3/uL (1.5-5.0); LYMPH % 23.4 % (24.0-44.0); MEAN CORPUSCULAR HEMOGLOBIN 29.8 pg (27.0-33.0); MEAN CORPUSCULAR HGB CONC 33.2 g/dl (32.0-36.5); MEAN CORPUSCULAR VOLUME 89.9 fl (80.0-96.0); MONO # 0.9 10^3/uL (0.0-0.8); NEUTROPHILS % 61.8 % (36.0-66.0); PLATELET COUNT, AUTOMATED 280 10^3/uL (150-450); RED BLOOD COUNT 4.73 10^6/uL (4.30-6.10); WHITE BLOOD COUNT 8.1 10^3/uL (4.0-10.0)
[2022-07-28 15:17] LABS: ALBUMIN 4.2 GM/DL (3.2-5.2); ALT/SGPT 52 U/L (12-78); BILIRUBIN,TOTAL 0.8 MG/DL (0.2-1.0); BLOOD UREA NITROGEN 15 MG/DL (7-18); CALCIUM LEVEL 8.9 MG/DL (8.5-10.1); CARBON DIOXIDE LEVEL 28 MEQ/L (21-32); CHLORIDE LEVEL 104 MEQ/L (98-107); CREATININE FOR GFR 1.16 MG/DL (0.70-1.30); GLOMERULAR FILTRATION RATE > 60.0 (>60); GLUCOSE, FASTING 92 MG/DL (70-100); MAGNESIUM LEVEL 2.3 MG/DL (1.8-2.4); POTASSIUM SERUM 4.4 MEQ/L (3.5-5.1); SODIUM LEVEL 140 MEQ/L (136-145); TOTAL PROTEIN 7.4 GM/DL (6.4-8.2)
[2022-07-28 15:49] LABS: MALB URINE SIEMENS 11.8 MG/L; MAU/CREAT RATIO 6.4 MCG/MG (0.0-30.0)
[2022-07-28 17:09] LABS: HEMOGLOBIN A1c 5.6 %
== END ==
LOC: M PLALAB 10:40
PROVIDERS: ATTEND Family Medicine
DX: R73.01 Impaired fasting glucose (principal); I10 Essential (primary) hypertension; E78.2 Mixed hyperlipidemia

== ENCOUNTER → 2022-08-03 | Outpatient (REF) ==
[2022-08-03 11:26] LABS: RSV AMPLIFICATION NEGATIVE (NEGATIVE)
== END ==
LOC: M EMP 09:26
PROVIDERS: ATTEND Family Medicine
DX: Z11.52 Encounter for screening for COVID-19 (principal)

== ENCOUNTER → 2022-12-03 | Outpatient (REF) | LOC: M LABSMTC 11:53 | PROVIDERS: ATTEND Family Medicine | DX: Z11.52 Encounter for screening for COVID-19 (principal) ==

== ENCOUNTER → 2023-01-06 | Outpatient (CLI) | payer BC | LOC: M PLALAB 14:22 | PROVIDERS: ATTEND Family Medicine | DX: Z80.8 Family history of malignant neoplasm of other organs or systems (principal) ==

== ENCOUNTER → 2023-09-21 | Outpatient (REF) ==
[2023-09-21 11:25] LABS: RSV AMPLIFICATION NEGATIVE (NEGATIVE)
== END ==
LOC: M EMP 10:09
PROVIDERS: ATTEND Family Medicine
DX: Z20.828 Contact with and (suspected) exposure to other viral communicable diseases (principal)

== ENCOUNTER → 2023-11-25 | Outpatient (REF) ==
[2023-11-25 14:03] LABS: RSV AMPLIFICATION NEGATIVE (NEGATIVE)
== END ==
LOC: M EMP 08:14
PROVIDERS: ATTEND Family Medicine
DX: Z11.59 Encounter for screening for other viral diseases (principal)

== ENCOUNTER → 2023-12-07 | Outpatient (CLI) | payer BC ==
[2023-12-07 14:07] LABS: HEMOGLOBIN A1c 5.6 % (4.0-6.0)
[2023-12-07 14:23] LABS: CPK CREATINE PHOSPHOKINASE 167 U/L (46-171)
[2023-12-07 14:24] LABS: ALBUMIN 4.1 G/DL (3.2-5.2); ALKALINE PHOSPHATASE 69 U/L (46-116); ALT/SGPT 15 U/L (7.0-40); AST/SGOT 24 U/L (<34); BILIRUBIN,TOTAL 0.8 MG/DL (0.3-1.2); BLOOD UREA NITROGEN 16 MG/DL (9-23); CALCIUM LEVEL 8.8 MG/DL (8.5-10.1); CARBON DIOXIDE LEVEL 28 MMOL/L (20-31); CHLORIDE LEVEL 102 MMOL/L (98-107); CHOLESTEROL LEVEL 133 MG/DL (<200); CHOLESTEROL RISK RATIO 3.91 (<5); CREATININE FOR GFR 1.05 MG/DL (0.70-1.30); GLOMERULAR FILTRATION RATE > 60.0 (>60); GLUCOSE, FASTING 87 MG/DL (60-100); LDL CHOLESTEROL 59.2 MG/DL (<100); POTASSIUM SERUM 4.2 MMOL/L (3.5-5.1); PTH INTACT 29.4 PG/ML (18.5-88.0); SODIUM LEVEL 137 MMOL/L (136-145); TOTAL PROTEIN 6.9 G/DL (5.7-8.2); TRIGLYCERIDES LEVEL 199 MG/DL (<150)
[2023-12-07 14:26] LABS: TOTAL 25(OH) VITAMIN D 30.7 NG/ML (20.0-100.0)
== END ==
LOC: M PLALAB 11:22
PROVIDERS: ATTEND Family Medicine
DX: E78.2 Mixed hyperlipidemia (principal); E55.9 Vitamin D deficiency, unspecified; R73.01 Impaired fasting glucose

== ENCOUNTER → 2023-12-09 | Outpatient (REF) | payer BC | LOC: M SFHCPLAZ 10:29 | PROVIDERS: ATTEND Family Medicine | DX: R73.01 Impaired fasting glucose (principal); I10 Essential (primary) hypertension; Z53.9 Procedure and treatment not carried out, unspecified reason ==

== ENCOUNTER → 2024-01-19 | Outpatient (REF) ==
[2024-01-19 14:30] LABS: RSV AMPLIFICATION NEGATIVE (NEGATIVE)
== END ==
LOC: M EMP 13:28
PROVIDERS: ATTEND Family Medicine
DX: Z20.828 Contact with and (suspected) exposure to other viral communicable diseases (principal)

== ENCOUNTER → 2024-06-23 | Outpatient (CLI) | payer BC ==
[2024-06-23 10:51] LABS: BASO # 0.1 10^3/uL (0.0-0.2); BASO % 0.8 % (0.0-1.0); EOS # 0.2 10^3/uL (0.0-0.5); EOS % 4.1 % (0.0-3.0); HEMATOCRIT 32.5 % (42.0-52.0); LYMPH # 1.8 10^3/uL (1.5-5.0); LYMPH % 30.4 % (24.0-44.0); MEAN CORPUSCULAR HEMOGLOBIN 30.2 pg (27.0-33.0); MEAN CORPUSCULAR HGB CONC 33.8 g/dl (32.0-36.5); MEAN CORPUSCULAR VOLUME 89.3 fl (80.0-96.0); MONO # 0.6 10^3/uL (0.0-0.8); MONO % 10.7 % (2.0-8.0); NEUTROPHILS # 3.2 10^3/uL (1.5-8.5); NEUTROPHILS % 53.7 % (36.0-66.0); PLATELET COUNT, AUTOMATED 276 10^3/uL (150-450); RED BLOOD COUNT 3.64 10^6/uL (4.30-6.10); WHITE BLOOD COUNT 5.9 10^3/uL (4.0-10.0)
[2024-06-23 11:02] LABS: HEMOGLOBIN A1c 5.2 % (4.0-6.0)
[2024-06-23 11:15] LABS: CREATININE, URINE 148.9 MG/DL
[2024-06-23 11:16] LABS: ALBUMIN 3.9 G/DL (3.2-5.2); ALKALINE PHOSPHATASE 78 U/L (46-116); ALT/SGPT 34 U/L (7.0-40); AST/SGOT 21 U/L (<34); BILIRUBIN,TOTAL 0.6 MG/DL (0.3-1.2); BLOOD UREA NITROGEN 15 MG/DL (9-23); CALCIUM LEVEL 8.9 MG/DL (8.5-10.1); CARBON DIOXIDE LEVEL 28 MMOL/L (20-31); CHLORIDE LEVEL 110 MMOL/L (98-107); CREATININE FOR GFR 1.13 MG/DL (0.70-1.30); GLOMERULAR FILTRATION RATE > 60.0 (>60); GLUCOSE, FASTING 100 MG/DL (60-100); MAGNESIUM LEVEL 2.1 MG/DL (1.8-2.4); MALB URINE SIEMENS < 3.0 MG/L; POTASSIUM SERUM 4.3 MMOL/L (3.5-5.1); SODIUM LEVEL 140 MMOL/L (136-145); TOTAL PROTEIN 6.7 G/DL (5.7-8.2)
== END ==
LOC: M PLALAB 08:39
PROVIDERS: ATTEND Family Medicine
DX: I10 Essential (primary) hypertension (principal); R73.01 Impaired fasting glucose

== ENCOUNTER → 2024-07-28 | Outpatient (REF) | LOC: M EMP 13:40 | PROVIDERS: ATTEND Family Medicine | DX: R09.89 Other specified symptoms and signs involving the circulatory and respiratory systems (principal) ==

== ENCOUNTER → 2024-09-29 | Outpatient (REF) ==
[~2024-09-29] MED LIST changes: +DESV50TA3 PO; +METF-838 PO; +ROSU10TA61 PO; +TELM1TAB35 PO; +VITAD400CA FT
== END ==
LOC: M EMP 07:44
PROVIDERS: ATTEND Family Medicine
DX: Z11.52 Encounter for screening for COVID-19 (principal)

== ENCOUNTER 2024-10-02 06:49 | Day surgery (SDC) | payer BC ==
[~2024-10-02] VITALS: Ht 175.3 cm; Wt 91.2 kg
[2024-10-02] MEDS ORDERED: LIDOCAINE 2% 100MG/5ML SDV (FOR ANES.) As Ordered ONE (08:36)
[2024-10-02] MEDS ORDERED: propofoL 200 MG/20 ML VIAL As Ordered ONE (08:36)
[2024-10-02 08:44] VITALS: TEMP 97.2
[2024-10-02 09:12] VITALS: BP 120/63; O2SAT 96
== END 2024-10-02 09:23 | disposition home or self-care (01) ==
LOC: M OPP 06:49
PROVIDERS: ATTEND Internal Medicine Gastroenterology
DX: Z12.11 Encounter for screening for malignant neoplasm of colon (principal); K64.0 First degree hemorrhoids; R12 Heartburn; K22.89 Other specified disease of esophagus; K29.50 Unspecified chronic gastritis without bleeding; K20.90 Esophagitis, unspecified without bleeding; G47.30 Sleep apnea, unspecified; Z79.84 Long term (current) use of oral hypoglycemic drugs; Z79.899 Other long term (current) drug therapy

== ENCOUNTER → 2024-10-06 | Outpatient (REF) | LOC: M EMP 09:15 | PROVIDERS: ATTEND Family Medicine | DX: Z01.89 Encounter for other specified special examinations (principal) ==

== ENCOUNTER → 2024-11-08 | Outpatient (REF) | LOC: M EMP 07:32 | PROVIDERS: ATTEND Family Medicine | DX: Z11.52 Encounter for screening for COVID-19 (principal); Z20.822 Contact with and (suspected) exposure to COVID-19 ==

== ENCOUNTER → 2025-01-12 | Outpatient (CLI) | payer BC ==
[2025-01-12 13:36] LABS: BASO # 0.1 10^3/uL (0.0-0.2); EOS # 0.3 10^3/uL (0.0-0.5); EOS % 4.1 % (0.0-3.0); HEMATOCRIT 41.7 % (42.0-52.0); LYMPH # 2.1 10^3/uL (1.5-5.0); LYMPH % 26.6 % (24.0-44.0); MEAN CORPUSCULAR HGB CONC 33.6 g/dl (32.0-36.5); MEAN CORPUSCULAR VOLUME 89.5 fl (80.0-96.0); MONO # 0.7 10^3/uL (0.0-0.8); MONO % 9.3 % (2.0-8.0); NEUTROPHILS # 4.6 10^3/uL (1.5-8.5); NEUTROPHILS % 58.6 % (36.0-66.0); PLATELET COUNT, AUTOMATED 289 10^3/uL (150-450); RED BLOOD COUNT 4.66 10^6/uL (4.30-6.10); WHITE BLOOD COUNT 7.9 10^3/uL (4.0-10.0)
[2025-01-12 14:12] LABS: HEMOGLOBIN A1c 5.3 % (4.0-6.0)
[2025-01-12 14:14] LABS: FERRITIN 39.7 NG/ML (10.5-307.3)
[2025-01-12 14:15] LABS: TOTAL 25(OH) VITAMIN D 37.3 NG/ML (20.0-100.0)
[2025-01-12 14:17] LABS: ALBUMIN 4.1 G/DL (3.2-5.2); BILIRUBIN,TOTAL 0.5 MG/DL (0.3-1.2); CALCIUM LEVEL 9.2 MG/DL (8.5-10.1); CHOLESTEROL RISK RATIO 3.29 (<5); CREATININE FOR GFR 1.15 MG/DL (0.70-1.30); HDL CHOLESTEROL 38.2 MG/DL (>40); LDL CHOLESTEROL 57.8 MG/DL (<100); NON-HDL-C 87.8 MG/DL; POTASSIUM SERUM 4.3 MMOL/L (3.5-5.1); PTH INTACT 25.1 PG/ML (18.5-88.0); TOTAL PROTEIN 7.1 G/DL (5.7-8.2)
== END ==
LOC: M PLALAB 09:30
PROVIDERS: ATTEND Family Medicine
DX: R73.01 Impaired fasting glucose (principal); E55.9 Vitamin D deficiency, unspecified; I10 Essential (primary) hypertension; E78.2 Mixed hyperlipidemia

== ENCOUNTER → 2025-06-25 | Outpatient (CLI) | payer BC ==
[2025-06-25 15:06] LABS: BASO # 0.1 10^3/uL (0.0-0.2); BASO % 0.8 % (0.0-1.0); EOS # 0.2 10^3/uL (0.0-0.5); EOS % 3.5 % (0.0-3.0); LYMPH # 1.7 10^3/uL (1.5-5.0); LYMPH % 25.1 % (24.0-44.0); MONO # 0.8 10^3/uL (0.0-0.8); MONO % 11.3 % (2.0-8.0); NEUTROPHILS # 3.9 10^3/uL (1.5-8.5); NEUTROPHILS % 58.7 % (36.0-66.0); PLATELET COUNT, AUTOMATED 307 10^3/uL (150-450)
[2025-06-25 15:11] LABS: CHOLESTEROL LEVEL 146.0 MG/DL (<200); CHOLESTEROL RISK RATIO 3.76 (<5); LDL CHOLESTEROL 89.6 MG/DL (<100); NON-HDL-C 107.2 MG/DL; PTH INTACT 22.9 PG/ML (18.5-88.0); TRIGLYCERIDES LEVEL 88.0 MG/DL (<150)
[2025-06-25 15:15] LABS: TOTAL 25(OH) VITAMIN D 60.3 NG/ML (20.0-100.0)
[2025-06-25 15:18] LABS: VITAMIN B12 LEVEL 445.0 PG/ML (211-911)
[2025-06-25 15:19] LABS: FREE T4 0.97 NG/DL (0.89-1.76)
== END ==
LOC: M PLALAB 09:48
PROVIDERS: ATTEND Family Medicine
DX: E55.9 Vitamin D deficiency, unspecified (principal); I10 Essential (primary) hypertension; E78.2 Mixed hyperlipidemia; E11.9 Type 2 diabetes mellitus without complications

== ENCOUNTER → 2025-09-25 | Outpatient (REF) ==
[~2025-09-25] MED LIST changes: -ROSU10TA61 PO; +ROSU10TA90 PO
[2025-09-25 14:06] LABS: SOFIA COVID ANTIGEN NEGATIVE (NEGATIVE)
== END ==
LOC: M EMP 13:07
PROVIDERS: ATTEND Family Medicine
DX: Z11.52 Encounter for screening for COVID-19 (principal)